=== PATIENT | male | born 1995 | race Two or more races ===

== ENCOUNTER 2025-01-04 20:38 | Emergency (ER) | payer MEDICAID, SELFPAY ==
[2025-01-04 20:39] VITALS: BMI 27.8
[2025-01-04 21:44] VITALS: BP 127/71; PULSE 79; RESP 18; TEMP 36.7; O2SAT 97
--- NOTE | 2025-01-04 22:10 | EKG_ITS ---
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
--- NOTE | 2025-01-04 22:10 | XR_ITS ---
EXAMINATION: PA lateral chest 2 views TECHNIQUE: Upright PA lateral chest 3 views Date and time: January 04, 2025, 2221 hours INDICATIONS: Chest pain beginning 3 weeks ago. FINDINGS: Normal heart size The lungs are clear. The osseous structures are intact IMPRESSION: No active disease
--- NOTE | 2025-01-04 22:13 | EDNOTE_ITS ---
ED Anxiety RME/HPI General Chief Complaint: Anxiety Stated Complaint: ANXIETY, PAIN IN CHEST 2-3 WEEKS Time Seen by Provider: 01/04/25 21:27 Arrival date/time: 01/04/25 20:38 29-year-old male with no prior history of anxiety presents with complaints of chest pain and shortness of breath lasting for several weeks. He reports that the symptoms occur episodically and that he has been evaluated by his primary care provider, but lab results have not yet been received. Today, while lying down, he experienced sharp chest pain that radiated down his left arm. He denies shortness of breath, nausea, vomiting, vision or hearing changes, or dizziness. The patient also states that he has not taken any medications for these symptoms. Limitations: no limitations Related Data Previous Rx's ?Medication ?Instructions ?Recorded Pepcid 20 mg tablet (famotidine) 20 mg PO QDAY PRN ron sea vomiting 10/19/17 sour stomach #10 tabs ciprofloxacin HCl 500 mg tablet 500 mg PO Q12H #20 tab s 04/13/18 (Cipro) ondansetron 4 mg disintegrating See Rx Instructions .R oute 04/13/18 tablet .COMPLEX #20 tabs ibuprofen 600 mg tablet 600 mg PO Q8H PRN pain #20 t abs 03/28/23 Allergies Allergy/AdvReac Type Severity Reaction Status Date / Time avocado Allergy Severe THROAT Verified 03/28/23 11:21 SWELLING Review of Systems Constitutional Constitutional: Denies chills and Denies fever(s) ENT Ears, Nose, Mouth, and Throat: Denies dizziness and Denies neck pain Cardiovascular Cardiovascular: Reports chest pain, Denies diaphoresis, Denies dyspnea and Denies syncope Respiratory Respiratory: Denies cough and Denies dyspnea Gastrointestinal Gastrointestinal: Denies nausea and Denies vomiting Musculoskeletal Musculoskeletal: Denies back pain and Denies neck pain Neurologic Neurologic: Denies dizziness and Denies syncope Psychiatric Psychiatric: Reports anxiety, Denies depression, Denies homicidal ideation and Denies suicidal ideation Past Medical History Past Medical History CARDIAC: Negative Congestive Heart Failure RESPIRATORY: Negative Chronic Obstructive Pulmonary Disease (COPD) GENITOURINARY: Negative Renal Disease ENDOCRINE: Negative Diabetes Mellitus Type 1 or Diabetes Mellitus Type 2 Social History SMOKING STATUS: Never smoker ED Exam General Limitations: Present no limitations General appearance: Present alert and in no apparent distress Head Head exam: Present atraumatic Eye Eye exam: Present normal appearance, PERRL and EOMI ENT ENT exam: Present normal exam, normal oropharynx and mucous membranes moist Neck Neck exam: Present normal inspection, full ROM and trachea midline Chest Chest inspection: Present normal inspection and symmetric chest wall rise Respiratory Respiratory exam: Present normal lung sounds bilaterally Cardiovascular Cardiovascular exam: Present regular rate, normal rhythm and normal heart sounds Abdominal Exam Abdominal exam: Present soft and normal bowel sounds Extremities Exam Extremities exam: Present normal inspection and full ROM Back Exam Back exam: Present normal inspection and full ROM Neurological Exam Neurological exam: Present alert, oriented X3 and CN II-XII intact Psychiatric Psychiatric exam: Present normal affect and normal mood Skin Skin exam: Present warm, dry, intact and normal color Course Course Course Narrative: 29-year-old male reports with complaint of chest pain for several days. Patient is EKG normal sinus rhythm no STEMI or ischemic changes noted chest x-ray is without infiltrates or opacities CBC and CMP unremarkable and troponin is negative. Differential diagnosis includes anxiety versus muscle skeletal pain versus viral infection. Patient stable nontoxic-appearing with stable vital signs he will be discharged home with a follow-up with his primary care provider for further evaluation Quality Measures none Orders Category Date Time Status EKG (ED ONLY) *Do not use* NOW Care 01/04/25 22:10 Active EKG (ED Only) Stat Exams 01/04/25 22:10 Ordered XR chest 2V Stat Exams 01/04/25 22:10 Ordered CBC Stat Lab 01/04/25 22:10 Ordered CMP [Comprehensive Metabolic Panel] Stat Lab 01/04/25 22:10 Ordered Troponin I Stat Lab 01/04/25 22:10 Ordered Vital Signs Vital signs: Vital Signs Temperature 98.0 F 01/04/25 21:44 Pulse Rate 79 01/04/25 21:44 Respiratory Rate 18 01/04/25 21:44 Blood Pressure 127/71 01/04/25 21:44 Pulse Oximetry (%) 97 01/04/25 21:44 Oxygen Delivery Method Room Air 01/04/25 21:44 PROCEDURES: EKG Interpretation #1: EKG Impression: Normal sinus rhythm, No acute ST-T changes and No ischemic changes Anxiety Patient data External records reviewed:: None Clinical information provided by:: patient Social determinants that could affect healthcare access:: none Patient has the following chronic illnesses:: anxiety How is presenting disease/condition affected by chronic disease/condition?: exacerbated by Evaluation data The following diagnostics were reviewed and interpreted by me:: lab results and radiology exam(s) Lab and/or radiology exams considered but not ordered:: none Interpretation Summary: Negative for cardiac events Medications / Prescriptions Medications or Prescriptions considered but not ordered:: None Medication administrations:: None Consultations Consultation(s) initiated? (list below): No Diagnosis Most likely diagnosis given after review of the tests above:: Anxiety and noncardiac chest pain Admission Indicated Admission indicated?: not indicated Admission Request Was there a request for admission?: No Disposition Plan Disposition Plan: Discharge Discharge Attestation Discharge Attestation: The patient and all family members were given an opportunity to ask questions and understood the discharge instructions. Discharge instructions specifically effects, indications for sooner follow up or return to the emergency department, and the expected course of current diagnosis. Patient condition: Stable Discharge Plan Plan Patient Disposition: HOME (Self Care) Prescriptions/Referrals Prescriptions/Med Rec: No Action ciprofloxacin HCl [Cipro] 500 mg tablet 500 mg PO Q12H Qty: 20 0RF Rx Instructions: administer dose 2 hrs before/6 hrs after dairy products/calcium/zinc/iron-containing products ondansetron 4 mg tablet,disintegrating See Rx Instructions .Route .COMPLEX Qty: 20 0RF Rx Instructions: 1-2 tabs SL Q6-8 hours prn nausea / vomiting famotidine [Pepcid] 20 mg tablet 20 mg PO QDAY PRN (Reason: nausea vomiting sour stomach) Qty: 10 0RF ibuprofen 600 mg tablet 600 mg PO Q8H PRN (Reason: pain) Qty: 20 0RF Referrals: Mukul Mcclellan PA-C [Primary Care Provider] - In 1 week Problem List Clinical Impression: Non-cardiac chest pain, Anxiety about health Patient/Caregiver Discharge Instructions Discharge Activity: activity as tolerated Education Materials: ED Chest Pain, Noncardiac Additional Instructions: Your lab tests are all normal you should follow-up with your primary care provider as planned. If symptoms worsen return to the emergency department Print Language: Marshallese Stand Alone Forms: Annika Award Info., Patient Portal Info Letter
[2025-01-04 22:27] LABS: Basophils # (Auto) 0.0 Thou/mm3 (0.0-0.2); Basophils % (Auto) 0 % (0-2.5); Eosinophils # (Auto) 0.1 Thou/mm3 (0.0-0.5); Eosinophils % (Auto) 2 % (0-10); Hematocrit 38.4 % (41.0-53.0); Hemoglobin 12.8 g/dL (13.5-16.0); Immature Granulocytes Auto 0.01 Thou/mm3 (0.00-0.00); Lymphocytes # (Auto) 2.7 Thou/mm3 (1.0-4.8); Lymphocytes % (Auto) 44 % (10-50); Mean Corpuscular HGB Conc 33.3 g/dl (31.0-37.0); Mean Corpuscular Hemoglobin 29.8 pg (25.0-35.0); Mean Corpuscular Volume 89 fL (80-100); Monocytes # (Auto) 0.4 Thou/mm3 (0.0-0.8); Monocytes % (Auto) 6 % (0-12); Neutrophils # (Auto) 2.9 Thou/mm3 (1.8-7.7); Neutrophils % (Auto) 48 % (37-80); Nucleated Red Blood Cell # 0.00 Thou/mm3 (0.00-0.00); Nucleated Red Blood Cell % 0 /100 WBC (0); Platelet Count 211 Thou/mm3 (140-440); RDW Standard Deviation 41.6 fL (35.1-43.9); Red Blood Count 4.30 Miln/mm3 (4.50-5.90); White Blood Count 6.1 Thou/mm3 (3.8-10.6)
[2025-01-04 22:46] LABS: Alanine Aminotransferase 26 U/L (10-49); Albumin, Serum 4.7 gm/dL (3.5-5.0); Albumin/Globulin Ratio 2.6 (1.2-2.2); Alkaline Phosphatase 63 U/L (46-116); Anion Gap 9 (7-16); Aspartate Amino Transferase 45 U/L (0-34); BUN/Creatinine Ratio 15 Ratio (12-20); Bilirubin,Total 0.9 mg/dL (0.3-1.2); Blood Urea Nitrogen 15 mg/dL (9-23); Calcium 9.1 mg/dL (8.3-10.6); Calcium (Corrected) 9.1 mg/dL (8.5-10.1); Carbon Dioxide 29.2 mMol/L (20.0-31.0); Chloride 110 mMol/L (98-107); Creatinine (Component) 1.0 mg/dL (0.6-1.3); Estimated Creatinine Clearance 121.8 mL/min (>60); Globulin 1.8 gm/dL (2.3-3.5); Glucose 79 mg/dL (74-106); Osmolality,Calculated 294 (275-295); Potassium 3.8 mMol/L (3.4-5.1); Sodium 148 mMol/L (136-145); Total Protein 6.5 gm/dL (5.7-8.2); Troponin I < 0.002 ng/mL (0.0-0.045); eGFR > 60 See Note
[2025-01-05 01:17] VITALS: BP 122/77; PULSE 78
== END 2025-01-05 01:19 | disposition home or self-care (01) ==
PROVIDERS: Physician Assistant; Emergency Provider Emergency Medicine; PCP Physician Assistant
DX: F41.9 Anxiety disorder, unspecified (principal)
CPT/HCPCS: 36415; 71046; 80053; 84484; 85025; 93005; 99283